=== PATIENT | female | born 1935 | race Caucasian/White ===

== ENCOUNTER 2018-07-08 02:43 | Emergency (ER) | payer MEDICARE, MEDICAID ==
--- NOTE | 2018-07-08 02:51 | EDM.PDOC ---
ED HPI GENERAL MEDICAL PROBLEM - General Stated Complaint: AMBULANCE Time Seen by Provider: 07/08/18 02:46 Source of Information: Reports: Patient History Limitations: Reports: No Limitations - History of Present Illness INITIAL COMMENTS - FREE TEXT/NARRATIVE: 4 days h/o CP weakness feels like passing out & some dizziness, tonight got very weak and slid down in bathroom, denies head/neck pain, only pain across chest. EMS found pt alert lying on bathroom floor c/o CP only. daughter states pt never told her she has been having CP till tonight. was told it was indigestion and also been constipated and felt better after BM tonight. Mid-Sternal Chest Pain Score (Numeric/FACES): 5 - Related Data Allergies Allergy/AdvReac Type Severity Reaction Status Date / Time No Known Allergies Allergy Verified 07/08/18 02:52 Home Meds: Home Meds Aspirin [Ecotrin] 81 mg PO DAILY 07/08/18 [History] Cholecalciferol (Vitamin D3) [Vitamin D3] 5,000 units PO DAILY 07/08/18 [History ] Cyanocobalamin (Vitamin B12) [Vitamin B12] 1,000 mcg PO DAILY 07/08/18 [History] Docusate Sodium [Dulcolax Stool Softener] 100 mg PO DAILY PRN 07/08/18 [History] FLUoxetine HCl [Prozac] 20 mg PO DAILY 07/08/18 [History] Indomethacin [Indocin] 50 mg PO BID 07/08/18 [History] Simvastatin [Zocor] 40 mg PO BEDTIME 07/08/18 [History] ED ROS GENERAL - Review of Systems Review Of Systems: ROS reveals no pertinent complaints other than HPI. ED EXAM, GENERAL - Physical Exam Exam: See Below Exam Limited By: No Limitations General Appearance: Alert, WD/WN, Mild Distress, Other (chest pain) Eye Exam: Bilateral Eye: PERRL (pupils ER @ 4mm) Ears: Hearing Grossly Normal Throat/Mouth: Normal Voice, No Airway Compromise Head: Atraumatic Neck: Non-Tender, Full Range of Motion Respiratory/Chest: No Respiratory Distress Cardiovascular: Regular Rate, Rhythm GI/Abdominal: Soft, Non-Tender Neurological: Alert, Oriented, Normal Cognition, No Motor/Sensory Deficits Psychiatric: Flat Affect Skin Exam: Warm, Dry, Normal Color Lymphatic: No Adenopathy Course - Vital Signs Last Recorded V/S: Last Vital Signs Temp 34.9 C L 07/08/18 02:56 Pulse 70 07/08/18 02:56 Resp 21 H 07/08/18 02:56 BP 83/43 L 07/08/18 02:56 Pulse Ox 98 07/08/18 02:56 - Orders/Labs/Meds Orders: Active Orders 24 hr Category Date Time Status EKG Documentation Completion [RC] STAT Care 07/08/18 02:45 Active CULTURE BLOOD [BC] Stat Lab 07/08/18 04:24 Ordered cefTRIAXone [Rocephin] 1 gm Med 07/08/18 04:25 Stop Req Sodium Chloride 0.9% [Normal Saline] 50 ml IV ONETIME Medication Orders Ceftriaxone Sodium 1 gm/ (Sodium Chloride) 50 mls @ 50 mls/hr IV ONETIME ONE Stop: 07/08/18 05:24 Labs: Laboratory Tests 07/08/18 07/08/18 07/08/18 Range/Units 02:50 02:50 02:50 WBC 17.5 H (5.0-10.0) 10^3/uL RBC 4.27 (4.2-5.4) 10^6/uL Hgb 12.6 (12.0-16.0) g/dL Hct 38.6 (37.0-47.0) % MCV 90.4 (80-100) fL MCH 29.5 (27.0-34.0) pg MCHC 32.6 L (33.0-35.0) g/dL Plt Count 307 (150-450) 10^3/uL Neut % (Auto) 68.2 (42.2-75.2) % Lymph % (Auto) 25.0 (20.5-50.1) % [place] % (Auto) 6.0 (2-8) % Eos % (Auto) 0.7 L (1.0-3.0) % Baso % (Auto) 0.1 (0.0-1.0) % PT 9.4 (9.0-12.0) SEC INR 0.9 (0.9-1.2) APTT 29.2 (22.0-34.0) SEC Sodium 136 (135-145) mmol/L Potassium 3.9 (3.6-5.0) mmol/L Chloride 103 (101-111) mmol/L Carbon Dioxide 21.0 (21.0-31.0) mmol/L Anion Gap 15.9 BUN 29 H (7-18) mg/dL Creatinine 1.2 (0.6-1.3) mg/dL Est Cr Clr Drug Dosing 28.09 mL/min Estimated GFR (MDRD) 43 BUN/Creatinine Ratio 24.16 Glucose 152 H (74-105) mg/dL Lactic Acid (0.5-2.2) mmol/L Calcium 8.9 (8.4-10.2) mg/dl Total Bilirubin 0.7 (0.2-1.0) mg/dL AST 22 (10-42) IU/L ALT 15 (10-60) IU/L Alkaline Phosphatase 57 (42-121) IU/L Troponin I 0.16 H* (0.00-0.02) ng/ml Total Protein 7.1 (6.7-8.2) g/dl Albumin 3.4 (3.2-5.5) g/dl Globulin 3.7 Albumin/Globulin Ratio 0.92 // Range/Units 02:50 WBC (5.0-10.0) 10^3/uL RBC (4.2-5.4) 10^6/uL Hgb (12.0-16.0) g/dL Hct (37.0-47.0) % MCV (80-100) fL MCH (27.0-34.0) pg MCHC (33.0-35.0) g/dL Plt Count (150-450) 10^3/uL Neut % (Auto) (42.2-75.2) % Lymph % (Auto) (20.5-50.1) % [place] % (Auto) (2-8) % Eos % (Auto) (1.0-3.0) % Baso % (Auto) (0.0-1.0) % PT (9.0-12.0) SEC INR (0.9-1.2) APTT (22.0-34.0) SEC Sodium (135-145) mmol/L Potassium (3.6-5.0) mmol/L Chloride (101-111) mmol/L Carbon Dioxide (21.0-31.0) mmol/L Anion Gap BUN (7-18) mg/dL Creatinine (0.6-1.3) mg/dL Est Cr Clr Drug Dosing mL/min Estimated GFR (MDRD) BUN/Creatinine Ratio Glucose (74-105) mg/dL Lactic Acid 1.1 (0.5-2.2) mmol/L Calcium (8.4-10.2) mg/dl Total Bilirubin (0.2-1.0) mg/dL AST (10-42) IU/L ALT (10-60) IU/L Alkaline Phosphatase (42-121) IU/L Troponin I (0.00-0.02) ng/ml Total Protein (6.7-8.2) g/dl Albumin (3.2-5.5) g/dl Globulin Albumin/Globulin Ratio Meds: Medications Generic Name Dose Route Start Last Admin Trade Name Freq PRN Reason Stop Dose Admin Ceftriaxone Sodium 1 gm/ 50 mls @ 50 mls/hr 07/08/18 04:25 Sodium Chloride IV 07/08/18 05:24 ONETIME ONE Discontinued Medications Generic Name Dose Route Start Last Admin Trade Name Freq PRN Reason Stop Dose Admin Sodium Chloride 1,000 mls @ 999 mls/hr 07/08/18 02:56 07/08/18 03:03 Normal Saline IV 07/08/18 03:56 999 mls/hr .BOLUS ONE Administration Morphine Sulfate 2 mg 07/08/18 03:06 07/08/18 03:11 Morphine IVPUSH 07/08/18 03:07 2 mg ONETIME ONE Administration Morphine Sulfate 2 mg 07/08/18 03:52 07/08/18 04:00 Morphine IVPUSH 07/08/18 03:53 2 mg ONETIME ONE Administration Ondansetron HCl 4 mg 07/08/18 02:56 07/08/18 03:02 Zofran IV 07/08/18 02:57 4 mg ONETIME ONE Administration - Re-Assessments/Exams Free Text/Narrative Re-Assessment/Exam: 07/08/18 04:27 GF on critical care diversion. Ravindra Wilkerson kindly accepted pt. Departure - Departure Time of Disposition: 04:28 Disposition: DC/Tfer to Acute Hospital 02 Reason for Transfer *Q: Other Condition: Fair Clinical Impression: Non-STEMI (non-ST elevated myocardial infarction) Hypotension Qualifiers: Hypotension type: unspecified hypotension type Qualified Code(s): I95.9 - Hypotension, unspecified Pneumonia Qualifiers: Pneumonia type: due to unspecified organism Laterality: left Lung location: lower lobe of lung Qualified Code(s): J18.1 - Lobar pneumonia, unspecified organism Forms: Interfacility Transfer EMTALA - My Orders Last 24 Hours: My Active Orders 07/08/18 02:45 EKG Documentation Completion [RC] STAT 07/08/18 04:24 CULTURE BLOOD [BC] Stat 07/08/18 04:25 cefTRIAXone [Rocephin] 1 gm Sodium Chloride 0.9% [Normal Saline] 50 ml IV ONETIME - Assessment/Plan Last 24 Hours: My Active Orders 07/08/18 02:45 EKG Documentation Completion [RC] STAT 07/08/18 04:24 CULTURE BLOOD [BC] Stat 07/08/18 04:25 cefTRIAXone [Rocephin] 1 gm Sodium Chloride 0.9% [Normal Saline] 50 ml IV ONETIME
[2018-07-08] MEDS ORDERED: Sodium Chloride 0.9% 1,000 ML IV ONE (02:56)
[2018-07-08] MEDS ORDERED: Ondansetron 4 MG/2 ML SDV IV ONE (02:56)
[2018-07-08] MEDS ORDERED: Morphine 2 MG/ML Syringe IVPUSH ONE ×2 (03:06→03:52)
[2018-07-08 03:12] LABS: ANION GAP 15.9
[2018-07-08] MEDS ORDERED: cefTRIAXone 1 GM in Sodium Chloride 0.9% 50 ML IV ONE (04:25)
== END 2018-07-08 04:42 ==
LOC: DL.ED 02:43
DX: I21.4 Non-ST elevation (NSTEMI) myocardial infarction (principal); I95.9 Hypotension, unspecified; J18.1 Lobar pneumonia, unspecified organism; Z79.82 Long term (current) use of aspirin
CPT/HCPCS: 36415; 70450; 71045; 80053; 83605; 84484; 85025; 85610; 85730; 87040; 93005; 96361; 96374; 96375; 96376; 99285; J2270; J2405; J7030; 99283

== ENCOUNTER → 2018-07-11 | Outpatient (CLI) | payer MEDICARE, MEDICAID ==
[2018-07-11 19:38] LABS: ANION GAP 13.7; CHLORIDE,CL 108 mmol/L (101-111); SODIUM,NA 141 mmol/L (135-145)
== END ==
LOC: DL.CLIN 14:43
PROVIDERS: ATTEND Physician Assistant Medical
DX: R06.02 Shortness of breath (principal); I25.2 Old myocardial infarction; I51.7 Cardiomegaly
CPT/HCPCS: 36415; 71046; 80053; 83880; 85025; 99214

== ENCOUNTER 2018-07-28 11:18 | Observation (INO) | payer MEDICARE, MEDICAID ==
--- NOTE | 2018-07-28 11:33 | EDM.PDOC ---
ED HPI GENERAL MEDICAL PROBLEM - General Chief Complaint: Syncope Stated Complaint: SYNCOPE Time Seen by Provider: 07/28/18 11:33 Source of Information: Reports: Patient, Family, Old Records, RN, RN Notes Reviewed History Limitations: Reports: No Limitations - History of Present Illness INITIAL COMMENTS - FREE TEXT/NARRATIVE: Pt brought to ER from [facility] with report that she had a witnessed syncopal episode. Pt states today was at her first visit to Cardiac Rehab. 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 She denies chest pain. Admits to intermittent lightheadedness. In June 2018 she was transferred from this ER to [facility] in for a non-STEMI and had 4 cardiac stents. Onset: Today, Sudden Duration: Resolved Prior to Arrival Location: Reports: Generalized Severity: Moderate - Related Data Allergies Allergy/AdvReac Type Severity Reaction Status Date / Time No Known Allergies Allergy Verified 07/08/18 02:52 Home Meds: Home Meds Aspirin [Ecotrin] 81 mg PO DAILY 07/08/18 [History] Cholecalciferol (Vitamin D3) [Vitamin D3] 5,000 units PO DAILY 07/08/18 [History ] Cyanocobalamin (Vitamin B12) [Vitamin B12] 1,000 mcg PO DAILY 07/08/18 [History] Docusate Sodium [Dulcolax Stool Softener] 100 mg PO DAILY PRN 07/08/18 [History] FLUoxetine HCl [Prozac] 20 mg PO DAILY 07/08/18 [History] Indomethacin [Indocin] 50 mg PO BID PRN 07/08/18 [History] Simvastatin [Zocor] 40 mg PO BEDTIME 07/08/18 [History] Albuterol/Ipratropium [Combivent Respimat] 07/28/18 [History] Fluticasone/Vilanterol [Breo Ellipta 100-25 MCG Inhalation Kit] 07/28/18 [ History] Past Medical History HEENT History: Reports: Hard of Hearing Other HEENT History: Rt ear hearing aid Cardiovascular History: Reports: High Cholesterol, Hypertension, RI, PTCA, Stents Other Cardiovascular History: 07/08/2018 nstemi, Ptca with 4 stents Respiratory History: Reports: COPD Gastrointestinal History: Reports: Chronic Constipation, GERD 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 - Past Surgical History Female Surgical History: Reports: Section Musculoskeletal Surgical History: Reports: Other (See Below) Other Musculoskeletal Surgeries/Procedures:: ankle surgery Social & Family History - Family History Family Medical History: Noncontributory - Caffeine Use Caffeine Use: Reports: Coffee - Living Situation & Occupation Occupation: Retired ED ROS GENERAL - Review of Systems Review Of Systems: ROS reveals no pertinent complaints other than HPI. - Physical Exam Exam: See Below Exam Limited By: No Limitations General Appearance: Alert, WD/WN, No Apparent Distress Eye Exam: Bilateral Eye: EOMI, Normal Inspection, PERRL Ears: Normal External Exam Nose: Normal Inspection, Normal Mucosa, No Blood Throat/Mouth: Normal Lips, Normal Oropharynx, Normal Voice, No Airway Compromise , Other (Mouth is dry) Head Exam: Atraumatic, Normocephalic Neck: Normal Inspection, Supple, Non-Tender, Full Range of Motion Respiratory/Chest: No Respiratory Distress, Lungs Clear, Normal Breath Sounds, No Accessory Muscle Use, Chest Non-Tender Cardiovascular: Normal Peripheral Pulses, Regular Rate, Rhythm, No Edema, No Gallop, No JVD, No Murmur, No Rub GI/Abdominal: Normal Bowel Sounds, Soft, Non-Tender, No Organomegaly, No Distention, No Abnormal Bruit, No Mass Neuro Exam (Abbreviated): Alert, Oriented, CN II-XII Intact, Normal Cognition, No Motor/Sensory Deficits Back Exam: Normal Inspection, Full Range of Motion, NT Extremities: Normal Inspection, Normal Range of Motion, Non-Tender, No Pedal Edema, Normal Capillary Refill Psychiatric: Normal Affect, Normal Mood Skin Exam: Warm, Dry, Intact, Normal Color, No Rash EKG INTERPRETATION EKG Date: 07/28/18 Time: 11:34 Rhythm: Other (SR) Rate (Beats/Min): 60 [place]: Normal P-Wave: Present QRS: Other (inferior/anterior Q waves) ST-T: Normal QT: Normal ID/PQ Interval: 1st degree AVB Comparison: No Change Course - Vital Signs Last Recorded V/S: Last Vital Signs Temp 37.2 C 07/28/18 11:39 Pulse 60 07/28/18 11:39 Resp 18 07/28/18 11:39 BP 134/56 L 07/28/18 11:39 Pulse Ox 100 07/28/18 11:39 Orthostatic Blood Pressure [ 119/62 Standing] Orthostatic Blood Pressure [ 137/61 Sitting] Orthostatic Blood Pressure [ 153/49 Supine] Lightheaded with standing. - Orders/Labs/Meds Orders: Active Orders 24 hr Category Date Time Status Blood Glucose Check, Bedside [] ONETIME Care 07/28/18 11:34 Active EKG 12 Lead [EKG Documentation Completion] [] STAT Care 07/28/18 11:34 Active Orthostatic Vital Signs [RC] ASDIRECTED Care 07/28/18 12:01 Active Peripheral IV Care [RC] . DIRECTED Care 07/28/18 11:34 Active Sodium Chloride 0.9% [Normal Saline] 250 ml Med 07/28/18 12:30 Active IV ASDIRECTED Sodium Chloride 0.9% [Saline Flush] Med 07/28/18 11:34 Active 10 ml FLUSH ASDIRECTED PRN Peripheral IV Insertion Adult [OM.PC] Stat Oth 07/28/18 11:34 Ordered Medication Orders Sodium Chloride (Normal Saline) 250 mls @ 250 mls/hr IV ASDIRECTED JUDITH Sodium Chloride (Saline Flush) 10 ml FLUSH ASDIRECTED PRN PRN Reason: Keep Vein Open Last Admin: 07/28/18 11:35 Dose: 10 ml Labs: Laboratory Tests 07/28/18 07/28/18 07/28/18 Range/Units 11:45 11:45 12:00 WBC 10.1 H (5.0-10.0) 10^3/uL RBC 3.86 L (4.2-5.4) 10^6/uL Hgb 10.9 L (12.0-16.0) g/dL Hct 34.6 L (37.0-47.0) % MCV 89.6 (80-100) fL MCH 28.2 (27.0-34.0) pg MCHC 31.5 L (33.0-35.0) g/dL Plt Count 403 (150-450) 10^3/uL Neut % (Auto) 56.6 (42.2-75.2) % Lymph % (Auto) 34.6 (20.5-50.1) % [place] % (Auto) 6.8 (2-8) % Eos % (Auto) 1.8 (1.0-3.0) % Baso % (Auto) 0.2 (0.0-1.0) % Sodium 137 (135-145) mmol/L Potassium 5.2 H D (3.6-5.0) mmol/L Chloride 106 (101-111) mmol/L Carbon Dioxide 22.0 (21.0-31.0) mmol/L Anion Gap 14.2 BUN 34 H (7-18) mg/dL Creatinine 1.2 (0.6-1.3) mg/dL Est Cr Clr Drug Dosing TNP Estimated GFR (MDRD) 43 BUN/Creatinine Ratio 28.33 Glucose 102 (74-105) mg/dL POC Glucose (83-110) mg/dl Calcium 9.1 (8.4-10.2) mg/dl Total Bilirubin 0.4 (0.2-1.0) mg/dL AST 21 (10-42) IU/L ALT 18 (10-60) IU/L Alkaline Phosphatase 61 (42-121) IU/L Troponin I < 0.02 (0.00-0.08) ng/mL B-Natriuretic Peptide 92 (0-100) pg/ml Total Protein 7.1 (6.7-8.2) g/dl Albumin 3.3 (3.2-5.5) g/dl Globulin 3.8 Albumin/Globulin Ratio 0.87 Urine Color Yellow (YELLOW) Urine Appearance Clear (CLEAR) Urine pH 5.5 (5.0-9.0) Ur Specific [place] 1.020 (1.005-1.030) Urine Protein Trace H (NEGATIVE) Urine Glucose (UA) Negative (NEGATIVE) Urine Ketones Trace H (NEGATIVE) Urine Occult Blood Negative (NEGATIVE) Urine Nitrite Negative (NEGATIVE) Urine Bilirubin Negative (NEGATIVE) Urine Urobilinogen 0.2 (0.2-1.0) mg/dL Ur Leukocyte Esterase Negative (NEGATIVE) Urine RBC Not seen /HPF Urine WBC 0-5 (0-5/HPF) /HPF Ur Epithelial Cells Moderate H /HPF Amorphous Sediment Few (0/HPF) /HPF Urine Bacteria Few (0-FEW/HPF) /HPF Hyaline Casts Few H /LPF Urine Mucus Moderate H /LPF 07/28/18 Range/Units 12:00 WBC (5.0-10.0) 10^3/uL RBC (4.2-5.4) 10^6/uL Hgb (12.0-16.0) g/dL Hct (37.0-47.0) % MCV (80-100) fL MCH (27.0-34.0) pg MCHC (33.0-35.0) g/dL Plt Count (150-450) 10^3/uL Neut % (Auto) (42.2-75.2) % Lymph % (Auto) (20.5-50.1) % [place] % (Auto) (2-8) % Eos % (Auto) (1.0-3.0) % Baso % (Auto) (0.0-1.0) % Sodium (135-145) mmol/L Potassium (3.6-5.0) mmol/L Chloride (101-111) mmol/L Carbon Dioxide (21.0-31.0) mmol/L Anion Gap BUN (7-18) mg/dL Creatinine (0.6-1.3) mg/dL Est Cr Clr Drug Dosing Estimated GFR (MDRD) BUN/Creatinine Ratio Glucose (74-105) mg/dL POC Glucose 93 (83-110) mg/dl Calcium (8.4-10.2) mg/dl Total Bilirubin (0.2-1.0) mg/dL AST (10-42) IU/L ALT (10-60) IU/L Alkaline Phosphatase (42-121) IU/L Troponin I (0.00-0.08) ng/mL B-Natriuretic Peptide (0-100) pg/ml Total Protein (6.7-8.2) g/dl Albumin (3.2-5.5) g/dl Globulin Albumin/Globulin Ratio Urine Color (YELLOW) Urine Appearance (CLEAR) Urine pH (5.0-9.0) Ur Specific [place] (1.005-1.030) Urine Protein (NEGATIVE) Urine Glucose (UA) (NEGATIVE) Urine Ketones (NEGATIVE) Urine Occult Blood (NEGATIVE) Urine Nitrite (NEGATIVE) Urine Bilirubin (NEGATIVE) Urine Urobilinogen (0.2-1.0) mg/dL Ur Leukocyte Esterase (NEGATIVE) Urine RBC /HPF Urine WBC (0-5/HPF) /HPF Ur Epithelial Cells /HPF Amorphous Sediment (0/HPF) /HPF Urine Bacteria (0-FEW/HPF) /HPF Hyaline Casts /LPF Urine Mucus /LPF Meds: Medications Generic Name Dose Route Start Last Admin Trade Name Freq PRN Reason Stop Dose Admin Sodium Chloride 250 mls @ 250 mls/hr 07/28/18 12:30 Normal Saline IV ASDIRECTED JUDITH Sodium Chloride 10 ml 07/28/18 11:34 07/28/18 11:35 Saline Flush FLUSH 10 ml ASDIRECTED PRN Administration Keep Vein Open - Radiology Interpretation Free Text/Narrative:: [facility] [place] [facility] Final Radiology Report Call: [phone] assistance Online chat: [email or web address] Name: AUSTEN MÁRQUEZ Age: 83Years F Date: 07/28/2018 SSN: -- : [id number] Study: CT HEAD WO Requesting Physician: KULDIP CURIEL Images: 1 Addl Studies: Provided Clinical History: Contrast: Without Contrast Medium: Contrast Amount: Contrast Method: Page 1 of 2 EXAM: CT Head Without Contrast EXAM DATE/TIME: 07/28/2018 11:48 AM CLINICAL HISTORY: 83 years old, female; Syncope TECHNIQUE: Imaging protocol: Axial computed tomography images of the head/brain without contrast. Coronal and sagittal reformatted images were created and reviewed. Radiation optimization: All CT scans at this facility use at least one of these dose optimization techniques: automated exposure control; mA and/or kV adjustment per patient size (includes targeted exams where dose is matched to clinical indication); or iterative reconstruction. Other technique: STROKE PROTOCOL was implemented. COMPARISON: CT Head wo Cont 07/08/2018 3:45 AM FINDINGS: Brain: No acute brain parenchymal abnormality. No intracranial hemorrhage. No intracranial mass or edema. There is diffuse cerebral atrophy. There are white matter low attenuation changes in both cerebral hemispheres likely related to chronic small vessel disease. Ventricles: No hydrocephalus when allowing for the atrophy. Bones/joints: No calvarial fracture. Sinuses: The visualized paranasal sinuses are aerated. Mastoid air cells: The mastoid air cells are aerated. Soft tissues: Unremarkable. IMPRESSION: AUSTEN MÁRQUEZ | Final Radiology Report CONFIDENTIALITY STATEMENT This report is intended only for use by the referring physician, and only in accordance with law. If you received this in error, call [phone]. Page 2 of 2 No acute intracranial abnormality. ASSESSMENT: ASPECTS ([place] Stroke Program Early CT Score) is 10. Thank you for allowing us to participate in the care of your patient. Dictated and Authenticated by: Bhupinder Barajas MD 07/28/2018 12:00 PM Central Time ([place] & [place]) [facility] Final Radiology Report Call: [phone] assistance Online chat: [email or web address] Name: AUSTEN MÁRQUEZ Age: 83Years F Date: 07/28/2018 SSN: -- : [id number] Study: XR CHEST 1 VIEW FRONTAL Requesting Physician: KULDIP CURIEL Images: 1 Addl Studies: Provided Clinical History: Contrast: Contrast Medium: Contrast Amount: Contrast Method: CONFIDENTIALITY STATEMENT This report is intended only for use by the referring physician, and only in accordance with law. If you received this in error, call [phone]. Page 1 of 1 EXAM: XR Chest, 1 View EXAM DATE/TIME: 07/28/2018 11:52 AM CLINICAL HISTORY: 83 years old, female; Syncope TECHNIQUE: Imaging protocol: XR of the chest, 1 view. COMPARISON: CR Chest 2V 07/11/2018 2:56 PM FINDINGS: Lungs: No acute lung consolidation or pulmonary edema. Pleural space: No pleural effusion or pneumothorax. Heart/Mediastinum: The heart is enlarged. The mediastinal contours are normal. Bones/joints: There are old, healed right rib fractures. IMPRESSION: Cardiomegaly. Thank you for allowing us to participate in the care of your patient. Dictated and Authenticated by: Bhupinder Barajas MD 07/28/2018 12:01 PM Central Time ([place] & [place]) Departure - Departure Time of Disposition: 13:12 (admit to Dr. Nunes) Disposition: Refer to Observation Condition: Fair Clinical Impression: Dehydration Syncope Qualifiers: Syncope type: unspecified Qualified Code(s): R55 - Syncope and collapse - Discharge Information Forms: ED Department Discharge - My Orders Last 24 Hours: My Active Orders 07/28/18 11:34 Blood Glucose Check, Bedside [RC] ONETIME EKG 12 Lead [EKG Documentation Completion] [RC] STAT Peripheral IV Care [RC] . DIRECTED Sodium Chloride 0.9% [Saline Flush] 10 ml FLUSH ASDIRECTED PRN Peripheral IV Insertion Adult [OM.PC] Stat 07/28/18 12:01 Orthostatic Vital Signs [RC] ASDIRECTED 07/28/18 12:30 Sodium Chloride 0.9% [Normal Saline] 250 ml IV ASDIRECTED - Assessment/Plan Last 24 Hours: My Active Orders 07/28/18 11:34 Blood Glucose Check, Bedside [RC] ONETIME EKG 12 Lead [EKG Documentation Completion] [RC] STAT Peripheral IV Care [RC] . DIRECTED Sodium Chloride 0.9% [Saline Flush] 10 ml FLUSH ASDIRECTED PRN Peripheral IV Insertion Adult [OM.PC] Stat 07/28/18 12:01 Orthostatic Vital Signs [RC] ASDIRECTED 07/28/18 12:30 Sodium Chloride 0.9% [Normal Saline] 250 ml IV ASDIRECTED
[2018-07-28] MEDS ORDERED: Sodium Chloride 0.9% 10 ML Syringe FLUSH PRN (11:34)
[2018-07-28 12:12] LABS: ANION GAP 14.2; CHLORIDE,CL 106 mmol/L (101-111); SODIUM,NA 137 mmol/L (135-145)
[2018-07-28] MEDS ORDERED: Sodium Chloride 0.9% 250 ML IV SCH (12:30)
[2018-07-28] MEDS ORDERED: traMADol 50 MG Tab PO PRN (13:58)
[2018-07-28] MEDS ORDERED: Albuterol/Ipratropium 3.0-0.5 MG/3 ML Neb Soln NEB PRN (14:02)
[2018-07-28] MEDS ORDERED: Acetaminophen 325 MG Tab PO PRN (14:06)
--- NOTE | 2018-07-28 14:15 | PCM.HP ---
H&P History of Present Illness - General Date of Service: 07/28/18 Admit Problem/Dx: Admission Diagnosis/Problem Admission Diagnosis/Problem Syncope Source of Information: Patient - History of Present Illness Initial Comments - Free Text/Narative: 83-year-old lady with a history of coronary artery disease, COPD. The patient recently had a non-ST elevation make or infarction. The patient on the day of admission started cardiac rehabilitation. Prior to the rehabilitation appointment she has been feeling well. Had no chest pain, shortness of breath, fever or chills but felt somewhat weak. The patient was on the treadmill and subsequently after finishing exercise the patient had a brief syncopal episode. She felt lightheaded after the exercise but had no associated chest pain, shortness of breath. She is feeling well now. In the emergency room orthostatic Drop in blood pressure was noted from systolic 153 to 119. - Related Data Allergies/Adverse Reactions: Allergies Allergy/AdvReac Type Severity Reaction Status Date / Time No Known Allergies Allergy Verified 07/28/18 14:02 Home Medications: Home Meds Aspirin [Ecotrin] 81 mg PO DAILY 07/08/18 [History] Cholecalciferol (Vitamin D3) [Vitamin D3] 5,000 units PO DAILY 07/08/18 [History ] Cyanocobalamin (Vitamin B12) [Vitamin B12] 1,000 mcg PO DAILY 07/08/18 [History] Docusate Sodium [Dulcolax Stool Softener] 100 mg PO DAILY PRN 07/08/18 [History] FLUoxetine HCl [Prozac] 20 mg PO DAILY 07/08/18 [History] Indomethacin [Indocin] 50 mg PO BID PRN 07/08/18 [History] Simvastatin [Zocor] 40 mg PO BEDTIME 07/08/18 [History] Albuterol/Ipratropium [Combivent Respimat] 07/28/18 [History] Fluticasone/Vilanterol [Breo Ellipta 100-25 MCG Inhalation Kit] 07/28/18 [ History] Past Medical History HEENT History: Reports: Hard of Hearing Other HEENT History: Rt ear hearing aid Cardiovascular History: Reports: High Cholesterol, Hypertension, [place], PTCA, Stents Other Cardiovascular History: 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 - Past Surgical History Female Surgical History: Reports: Section Musculoskeletal Surgical History: Reports: Other (See Below) Other Musculoskeletal Surgeries/Procedures:: ankle surgery Social & Family History - Family History Family Medical History: Noncontributory - Tobacco Use Smoking Status *Q: Former Smoker Years of Tobacco use: 60 Used Tobacco, but Quit: Yes Month/Year Tobacco Last Used: 07/07 - Caffeine Use Caffeine Use: Reports: Coffee - Recreational Drug Use Recreational Drug Use: No - Living Situation & Occupation Occupation: Retired H&P Review of Systems - Review of Systems: Review Of Systems: See Below General: Denies: Fever, Chills Pulmonary: Denies: Shortness of Breath Cardiovascular: Reports: Syncope. Denies: Chest Pain, Edema Gastrointestinal: Denies: Abdominal Pain Genitourinary: Denies: Dysuria Musculoskeletal: Denies: Neck Pain Psychiatric: Denies: Confusion, Agitation Neurological: Reports: Dizziness (Lightheadedness prior to syncopal episode) Exam - Exam Exam: See Below - Vital Signs Vital Signs: Last Vital Signs Temp 37.2 C 07/28/18 11:39 Pulse 60 07/28/18 11:39 Resp 18 07/28/18 11:39 BP 134/56 L 07/28/18 11:39 Pulse Ox 100 07/28/18 11:39 Orthostatic Blood Pressure [ 119/62 Standing] Orthostatic Blood Pressure [ 137/61 Sitting] Orthostatic Blood Pressure [ 153/49 Supine] - Exam General: Alert, Oriented Neck: Supple, Trachea Midline Lungs: Clear to Auscultation, Normal Respiratory Effort Cardiovascular: Regular Rate, Regular Rhythm GI/Abdominal Exam: Normal Bowel Sounds, Soft, Non-Tender Extremities: No Pedal Edema - Patient Data Lab Results Last 24 hrs: Laboratory Results - last 24 hr 07/28/18 07/28/18 07/28/18 Range/Units 11:45 11:45 12:00 WBC 10.1 H (5.0-10.0) 10^3/uL RBC 3.86 L (4.2-5.4) 10^6/uL Hgb 10.9 L (12.0-16.0) g/dL Hct 34.6 L (37.0-47.0) % MCV 89.6 (80-100) fL MCH 28.2 (27.0-34.0) pg MCHC 31.5 L (33.0-35.0) g/dL Plt Count 403 (150-450) 10^3/uL Neut % (Auto) 56.6 (42.2-75.2) % Lymph % (Auto) 34.6 (20.5-50.1) % [place] % (Auto) 6.8 (2-8) % Eos % (Auto) 1.8 (1.0-3.0) % Baso % (Auto) 0.2 (0.0-1.0) % Sodium 137 (135-145) mmol/L Potassium 5.2 H D (3.6-5.0) mmol/L Chloride 106 (101-111) mmol/L Carbon Dioxide 22.0 (21.0-31.0) mmol/L Anion Gap 14.2 BUN 34 H (7-18) mg/dL Creatinine 1.2 (0.6-1.3) mg/dL Est Cr Clr Drug Dosing TNP Estimated GFR (MDRD) 43 BUN/Creatinine Ratio 28.33 Glucose 102 (74-105) mg/dL POC Glucose (83-110) mg/dl Calcium 9.1 (8.4-10.2) mg/dl Total Bilirubin 0.4 (0.2-1.0) mg/dL AST 21 (10-42) IU/L ALT 18 (10-60) IU/L Alkaline Phosphatase 61 (42-121) IU/L Troponin I < 0.02 (0.00-0.08) ng/mL B-Natriuretic Peptide 92 (0-100) pg/ml Total Protein 7.1 (6.7-8.2) g/dl Albumin 3.3 (3.2-5.5) g/dl Globulin 3.8 Albumin/Globulin Ratio 0.87 Urine Color Yellow (YELLOW) Urine Appearance Clear (CLEAR) Urine pH 5.5 (5.0-9.0) Ur Specific [place] 1.020 (1.005-1.030) Urine Protein Trace H (NEGATIVE) Urine Glucose (UA) Negative (NEGATIVE) Urine Ketones Trace H (NEGATIVE) Urine Occult Blood Negative (NEGATIVE) Urine Nitrite Negative (NEGATIVE) Urine Bilirubin Negative (NEGATIVE) Urine Urobilinogen 0.2 (0.2-1.0) mg/dL Ur Leukocyte Esterase Negative (NEGATIVE) Urine RBC Not seen /HPF Urine WBC 0-5 (0-5/HPF) /HPF Ur Epithelial Cells Moderate H /HPF Amorphous Sediment Few (0/HPF) /HPF Urine Bacteria Few (0-FEW/HPF) /HPF Hyaline Casts Few H /LPF Urine Mucus Moderate H /LPF 07/28/18 Range/Units 12:00 WBC (5.0-10.0) 10^3/uL RBC (4.2-5.4) 10^6/uL Hgb (12.0-16.0) g/dL Hct (37.0-47.0) % MCV (80-100) fL MCH (27.0-34.0) pg MCHC (33.0-35.0) g/dL Plt Count (150-450) 10^3/uL Neut % (Auto) (42.2-75.2) % Lymph % (Auto) (20.5-50.1) % [place] % (Auto) (2-8) % Eos % (Auto) (1.0-3.0) % Baso % (Auto) (0.0-1.0) % Sodium (135-145) mmol/L Potassium (3.6-5.0) mmol/L Chloride (101-111) mmol/L Carbon Dioxide (21.0-31.0) mmol/L Anion Gap BUN (7-18) mg/dL Creatinine (0.6-1.3) mg/dL Est Cr Clr Drug Dosing Estimated GFR (MDRD) BUN/Creatinine Ratio Glucose (74-105) mg/dL POC Glucose 93 (83-110) mg/dl Calcium (8.4-10.2) mg/dl Total Bilirubin (0.2-1.0) mg/dL AST (10-42) IU/L ALT (10-60) IU/L Alkaline Phosphatase (42-121) IU/L Troponin I (0.00-0.08) ng/mL B-Natriuretic Peptide (0-100) pg/ml Total Protein (6.7-8.2) g/dl Albumin (3.2-5.5) g/dl Globulin Albumin/Globulin Ratio Urine Color (YELLOW) Urine Appearance (CLEAR) Urine pH (5.0-9.0) Ur Specific [place] (1.005-1.030) Urine Protein (NEGATIVE) Urine Glucose (UA) (NEGATIVE) Urine Ketones (NEGATIVE) Urine Occult Blood (NEGATIVE) Urine Nitrite (NEGATIVE) Urine Bilirubin (NEGATIVE) Urine Urobilinogen (0.2-1.0) mg/dL Ur Leukocyte Esterase (NEGATIVE) Urine RBC /HPF Urine WBC (0-5/HPF) /HPF Ur Epithelial Cells /HPF Amorphous Sediment (0/HPF) /HPF Urine Bacteria (0-FEW/HPF) /HPF Hyaline Casts /LPF Urine Mucus /LPF Result Diagrams: 07/28/18 11:45 07/28/18 11:45 - Problem List (1) Syncope SNOMED Code(s): 885436126 ICD Code: R55 - SYNCOPE AND COLLAPSE Status: Acute Current Visit: No Qualifiers: Syncope type: unspecified Qualified Code(s): R55 - Syncope and collapse Problem List Initiated/Reviewed/Updated: Yes Orders Last 24hrs: Active Orders 24 hr Category Date Time Status Patient Status [ADT] Routine ADT 07/28/18 14:06 Active Antiembolic Devices [RC] PER UNIT ROUTINE Care 07/28/18 14:08 Active Orthostatic Vital Signs [RC] ASDIRECTED Care 07/28/18 12:01 Active Oxygen Therapy [RC] PRN Care 07/28/18 14:06 Active Peripheral IV Care [RC] ,21 Care 07/28/18 11:34 Active RT Aerosol Therapy [RC] ASDIRECTED Care 07/28/18 14:02 Active Telemetry Monitoring [Cardiac Monitoring] [RC] . Care 07/28/18 13:49 Active DIRECTED Up With Assistance [RC] ASDIRECTED Care 07/28/18 14:06 Active VTE/DVT Education [RC] PER UNIT ROUTINE Care 07/28/18 14:06 Active Vital Signs [RC] Q4H Care 07/28/18 14:06 Active OT Evaluation and Treatment [CONS] Routine Cons 07/28/18 13:50 Active PT Evaluation and Treatment [CONS] Routine Cons 07/28/18 13:50 Active 2 Gram Sodium Diet [DIET] Diet 07/28/18 Dinner Active BASIC METABOLIC PANEL,BMP [CHEM] AM Lab 07/29/18 05:15 Ordered CBC WITH AUTO DIFF [HEME] AM Lab 07/29/18 05:15 Ordered TROPONIN I [CHEM] AM Lab 07/29/18 05:11 Ordered TROPONIN I [CHEM] Timed Lab 07/28/18 17:00 Ordered Acetaminophen [Tylenol] Med 07/28/18 14:06 Ordered 650 mg PO Q4H PRN Albuterol/Ipratropium [DuoNeb 3.0-0.5 MG/3 ML] Med 07/28/18 14:02 Ordered 3 ml NEB Q4HRRT PRN Albuterol/Ipratropium [DuoNeb 3.0-0.5 MG/3 ML] Med 07/28/18 15:00 Ordered 3 ml NEB Q8HRRT Allopurinol [Zyloprim] Med 07/29/18 08:00 Ordered 100 mg PO WITHBREAKFAST Aspirin [Halfprin] Med 07/29/18 09:00 Ordered 81 mg PO DAILY Budesonide [Pulmicort] Med 07/28/18 18:00 Ordered 0.5 mg NEB BIDRT Carvedilol [Coreg] Med 07/28/18 18:00 Ordered 6.25 mg PO BIDMEALS FLUoxetine HCl [Prozac] Med 07/29/18 09:00 Ordered 20 mg PO DAILY Ferrous Sulfate Med 07/29/18 08:00 Ordered 325 mg PO WITHBREAKFAST Folic Acid Med 07/29/18 09:00 Ordered 1 mg PO DAILY Heparin Sodium Med 07/28/18 22:00 Ordered 5,000 units SUBCUT Q8HR Patient's Own Medication [Ptom] Med 07/28/18 21:00 Ordered See Dose Instructions PO BID Sodium Chloride 0.9% [Normal Saline] 1,000 ml Med 07/28/18 14:00 Active IV ASDIRECTED Sodium Chloride 0.9% [Normal Saline] 250 ml Med 07/28/18 12:30 Active IV ASDIRECTED Sodium Chloride 0.9% [Saline Flush] Med 07/28/18 11:34 Active 10 ml FLUSH ASDIRECTED PRN Zolpidem [Ambien] Med 07/28/18 14:06 Ordered 5 mg PO BEDTIME PRN atorvaSTATin [Lipitor] Med 07/28/18 21:00 Ordered 40 mg PO BEDTIME traMADol [Ultram] Med 07/28/18 13:58 Ordered 50 mg PO Q6H PRN Antiembolic Hose [OM.PC] Per Unit Routine Oth 07/28/18 14:07 Ordered Peripheral IV Insertion Adult [OM.PC] Stat Oth 07/28/18 11:34 Ordered Resuscitation Status Routine Resus Stat 07/28/18 14:06 Ordered Medication Orders Acetaminophen (Tylenol) 650 mg PO Q4H PRN PRN Reason: Pain (Mild 1-3)/fever Albuterol/Ipratropium (Duoneb 3.0-0.5 Mg/3 Ml) 3 ml NEB Q8HRRT [facility] Albuterol/Ipratropium (Duoneb 3.0-0.5 Mg/3 Ml) 3 ml NEB Q4HRRT PRN PRN Reason: sob Allopurinol (Zyloprim) 100 mg PO WITHBREAKFAST [facility] Aspirin (Halfprin) 81 mg PO DAILY [facility] Atorvastatin Calcium (Lipitor) 40 mg PO BEDTIME [facility] Budesonide (Pulmicort) 0.5 mg NEB BIDRT [facility] Carvedilol (Coreg) 6.25 mg PO BIDMEALS [facility] Ferrous Sulfate (Ferrous Sulfate) 325 mg PO WITHBREAKFAST [facility] Folic Acid (Folic Acid) 1 mg PO DAILY [facility] Heparin Sodium (Porcine) (Heparin Sodium) 5,000 units SUBCUT Q8HR [facility] Sodium Chloride (Normal Saline) 250 mls @ 250 mls/hr IV ASDIRECTED [facility] Last Admin: 07/28/18 13:47 Dose: 250 mls/hr Sodium Chloride (Normal Saline) 1,000 mls @ 75 mls/hr IV ASDIRECTED [facility] Non-Formulary Medication (Fluoxetine Hcl [Prozac]) 20 mg PO DAILY [facility] Patient Own Medication (Ptom) 0 each PO BID [facility] Sodium Chloride (Saline Flush) 10 ml FLUSH ASDIRECTED PRN PRN Reason: Keep Vein Open Last Admin: 07/28/18 11:35 Dose: 10 ml Tramadol HCl (Ultram) 50 mg PO Q6H PRN PRN Reason: moderate pain Zolpidem Tartrate (Ambien) 5 mg PO BEDTIME PRN PRN Reason: Sleep Assessment/Plan Comment:: Syncopal episode Following treadmill activity Well monitor on telemetry Repeat troponins Orthostatic hypotension noted, IV fluids will be given PT and OT consult and treatment Coronary artery disease Recent stenting Treat with aspirin, brillinta, Coreg, Lipitor COPD No acute exacerbation Hold Breo Use Pulmicort twice a day Use DuoNeb scheduled and as needed Mild hyperkalemia Will hydrate the patient Recheck in the morning DVT prophylaxis with subcutaneous heparin Discussed CODE STATUS. The patient wish DNR CODE STATUS.
[2018-07-28] MEDS: Sodium Chloride 0.9% 1,000 ML IV SCH ×2 (14:35→22:45)
[2018-07-28] MEDS: Albuterol/Ipratropium 3.0-0.5 MG/3 ML Neb Soln NEB SCH ×2 (15:33→22:47)
[2018-07-28] MEDS: Heparin Sodium 5,000 Units/ML Vial SUBCUT SCH ×2 (15:52→21:34)
[2018-07-28] MEDS: CARVEDILOL 6.25 MG PO SCH (17:39)
[2018-07-28] MEDS: Budesonide 0.5 MG/2 ML Neb Susp NEB SCH (17:39)
[2018-07-28] MEDS: BRILINTA 90 MG PO SCH (20:29)
[2018-07-28] MEDS ORDERED: Simvastatin 40 MG Tab PO SCH (21:00)
[2018-07-28] MEDS ORDERED: ATORVASTATIN 40 MG PO SCH (21:00)
[2018-07-28] MEDS ORDERED: Zolpidem 5 MG Tab PO PRN (21:00)
[2018-07-29] MEDS: Heparin Sodium 5,000 Units/ML Vial SUBCUT SCH (05:43)
[2018-07-29 06:46] LABS: ANION GAP 14.3
[2018-07-29] MEDS: Albuterol/Ipratropium 3.0-0.5 MG/3 ML Neb Soln NEB SCH (07:30)
[2018-07-29] MEDS: Budesonide 0.5 MG/2 ML Neb Susp NEB SCH (07:31)
[2018-07-29] MEDS ORDERED: [UNRECOGNIZED DRUG - OTHER] PO SCH (08:00)
[2018-07-29] MEDS ORDERED: Allopurinol 100 MG Tab PO SCH (08:00)
[2018-07-29] MEDS: CARVEDILOL 6.25 MG PO SCH ×2 (08:49→08:53)
[2018-07-29] MEDS: BRILINTA 90 MG PO SCH (08:54)
[2018-07-29] MEDS ORDERED: Folic Acid 1 MG Tab PO SCH (09:00)
[2018-07-29] MEDS ORDERED: Aspirin 81 MG Tab.EC PO SCH (09:00)
[2018-07-29] MEDS ORDERED: FLUOXETINE HCL 20 MG PO SCH (09:00)
--- NOTE | 2018-07-29 12:15 | PCM.DCSUM1 ---
Discharge Summary - Hospital Course Free Text/Narrative:: Syncopal episode - likely due to orthostasis with dehydration Following treadmill activity no arrythmia telemetry normal troponins Orthostatic hypotension noted, IV fluids were given no further symptoms Coronary artery disease Recent stenting Treat with aspirin, brillinta, Coreg, Lipitor COPD No acute exacerbation resume home inhalers Mild hyperkalemia resolved with hydration Diagnosis: Stroke: No - Discharge Data Discharge Date: 07/29/18 Discharge Disposition: Home, Self-Care 01 Condition: Good - Discharge Diagnosis/Problem(s) (1) Syncope SNOMED Code(s): 900762034 ICD Code: R55 - SYNCOPE AND COLLAPSE Status: Acute Current Visit: No Qualifiers: Syncope type: unspecified Qualified Code(s): R55 - Syncope and collapse - Patient Summary/Data Consults: Consultations 07/28/18 13:50 OT Evaluation and Treatment [CONS] Routine PT Evaluation and Treatment [CONS] Routine - Patient Instructions Diet: Usual Diet as Tolerated Activity: As Tolerated - Discharge Plan Home Medications: Home Meds Aspirin [Ecotrin] 81 mg PO DAILY 07/08/18 [History] Cholecalciferol (Vitamin D3) [Vitamin D3] 5,000 units PO DAILY 07/08/18 [History ] Cyanocobalamin (Vitamin B12) [Vitamin B12] 1,000 mcg PO DAILY 07/08/18 [History] Docusate Sodium [Dulcolax Stool Softener] 100 mg PO DAILY PRN 07/08/18 [History] FLUoxetine HCl [Prozac] 20 mg PO DAILY 07/08/18 [History] Albuterol/Ipratropium [Combivent Respimat] 1 puff INH QID 07/28/18 [History] Carvedilol 6.25 mg PO BID 07/28/18 [History] Ferrous Sulfate 325 mg PO BID 07/28/18 [History] Fluticasone/Vilanterol [Breo Ellipta 100-25 MCG Inhalation Kit] 1 inhalation INH DAILY 07/28/18 [History] Folic Acid 1 mg PO DAILY 07/28/18 [History] Patient's Own Medication [Ptom] 1 tab PO BEDTIME 07/28/18 [History] Thiamine [Vitamin B-1] 100 mg PO DAILY 07/28/18 [History] Ticagrelor [Brilinta] 90 mg PO BID 07/28/18 [History] atorvaSTATin [Lipitor] 40 mg PO BEDTIME 07/28/18 [History] hydrOXYzine HCl [hydrOXYzine] 25 mg PO TID PRN 07/28/18 [History] traMADol [Ultram] 100 mg PO Q8HR PRN 07/28/18 [History] Oxygen Therapy Mode: Room Air Patient Handouts: Syncope, [id number] Referrals: Mehnaz Quiñones PA-C [Ordering Only Provider] - - Discharge Summary/Plan Comment DC Time >30 min.: No - General Info Date of Service: 07/29/18 Functional Status: Reports: Pain Controlled, Tolerating Diet - Review of Systems General: Denies: Fever, Weakness Cardiovascular: Denies: Chest Pain Gastrointestinal: Denies: Abdominal Pain Genitourinary: Denies: Dysuria Musculoskeletal: Denies: Neck Pain Neurological: Denies: Confusion, Dizziness Psychiatric: Denies: Confusion, Agitation, Hallucinations - Patient Data Vitals - Most Recent: Last Vital Signs Temp 36.2 C 07/29/18 08:34 Pulse 66 07/29/18 08:53 Resp 20 07/29/18 08:34 BP 153/61 H 07/29/18 08:53 Pulse Ox 99 07/29/18 08:34 Orthostatic Blood Pressure [ 119/62 Standing] Orthostatic Blood Pressure [ 137/61 Sitting] Orthostatic Blood Pressure [ 153/49 Supine] Weight - Most Recent: 74.026 kg I&O - Last 24 hours: Intake & Output 07/28/18 07/29/18 07/29/18 22:59 06:59 14:59 Intake Total 570 2066 1200 Output Total 700 800 500 Balance -130 1266 700 Lab Results - Last 24 hrs: Laboratory Results - last 24 hr 07/28/18 07/28/18 07/28/18 Range/Units 11:45 12:00 17:00 WBC (5.0-10.0) 10^3/uL RBC (4.2-5.4) 10^6/uL Hgb (12.0-16.0) g/dL Hct (37.0-47.0) % MCV (80-100) fL MCH (27.0-34.0) pg MCHC (33.0-35.0) g/dL Plt Count (150-450) 10^3/uL Neut % (Auto) (42.2-75.2) % Lymph % (Auto) (20.5-50.1) % [place] % (Auto) (2-8) % Eos % (Auto) (1.0-3.0) % Baso % (Auto) (0.0-1.0) % Sodium 137 (135-145) mmol/L Potassium 5.2 H D (3.6-5.0) mmol/L Chloride 106 (101-111) mmol/L Carbon Dioxide 22.0 (21.0-31.0) mmol/L Anion Gap 14.2 BUN 34 H (7-18) mg/dL Creatinine 1.2 (0.6-1.3) mg/dL Est Cr Clr Drug Dosing TNP Estimated GFR (MDRD) 43 BUN/Creatinine Ratio 28.33 Glucose 102 (74-105) mg/dL Calcium 9.1 (8.4-10.2) mg/dl Total Bilirubin 0.4 (0.2-1.0) mg/dL AST 21 (10-42) IU/L ALT 18 (10-60) IU/L Alkaline Phosphatase 61 (42-121) IU/L Troponin I < 0.02 0.01 (0.00-0.08) ng/mL B-Natriuretic Peptide 92 (0-100) pg/ml Total Protein 7.1 (6.7-8.2) g/dl Albumin 3.3 (3.2-5.5) g/dl Globulin 3.8 Albumin/Globulin Ratio 0.87 Urine Color Yellow (YELLOW) Urine Appearance Clear (CLEAR) Urine pH 5.5 (5.0-9.0) Ur Specific [place] 1.020 (1.005-1.030) Urine Protein Trace H (NEGATIVE) Urine Glucose (UA) Negative (NEGATIVE) Urine Ketones Trace H (NEGATIVE) Urine Occult Blood Negative (NEGATIVE) Urine Nitrite Negative (NEGATIVE) Urine Bilirubin Negative (NEGATIVE) Urine Urobilinogen 0.2 (0.2-1.0) mg/dL Ur Leukocyte Esterase Negative (NEGATIVE) Urine RBC Not seen /HPF Urine WBC 0-5 (0-5/HPF) /HPF Ur Epithelial Cells Moderate H /HPF Amorphous Sediment Few (0/HPF) /HPF Urine Bacteria Few (0-FEW/HPF) /HPF Hyaline Casts Few H /LPF Urine Mucus Moderate H /LPF 07/29/18 07/29/18 Range/Units 05:52 05:52 WBC 9.3 (5.0-10.0) 10^3/uL RBC 3.32 L (4.2-5.4) 10^6/uL Hgb 9.5 L (12.0-16.0) g/dL Hct 30.0 L (37.0-47.0) % MCV 90.4 (80-100) fL MCH 28.6 (27.0-34.0) pg MCHC 31.7 L (33.0-35.0) g/dL Plt Count 341 (150-450) 10^3/uL Neut % (Auto) 52.7 (42.2-75.2) % Lymph % (Auto) 38.1 (20.5-50.1) % [place] % (Auto) 7.2 (2-8) % Eos % (Auto) 1.8 (1.0-3.0) % Baso % (Auto) 0.2 (0.0-1.0) % Sodium 140 (135-145) mmol/L Potassium 4.3 (3.6-5.0) mmol/L Chloride 108 (101-111) mmol/L Carbon Dioxide 22.0 (21.0-31.0) mmol/L Anion Gap 14.3 BUN 28 H (7-18) mg/dL Creatinine 1.0 (0.6-1.3) mg/dL Est Cr Clr Drug Dosing 38.36 Estimated GFR (MDRD) 53 BUN/Creatinine Ratio Glucose 92 (74-105) mg/dL Calcium 8.4 (8.4-10.2) mg/dl Total Bilirubin (0.2-1.0) mg/dL AST (10-42) IU/L ALT (10-60) IU/L Alkaline Phosphatase (42-121) IU/L Troponin I 0.02 (0.00-0.08) ng/mL B-Natriuretic Peptide (0-100) pg/ml Total Protein (6.7-8.2) g/dl Albumin (3.2-5.5) g/dl Globulin Albumin/Globulin Ratio Urine Color (YELLOW) Urine Appearance (CLEAR) Urine pH (5.0-9.0) Ur Specific [place] (1.005-1.030) Urine Protein (NEGATIVE) Urine Glucose (UA) (NEGATIVE) Urine Ketones (NEGATIVE) Urine Occult Blood (NEGATIVE) Urine Nitrite (NEGATIVE) Urine Bilirubin (NEGATIVE) Urine Urobilinogen (0.2-1.0) mg/dL Ur Leukocyte Esterase (NEGATIVE) Urine RBC /HPF Urine WBC (0-5/HPF) /HPF Ur Epithelial Cells /HPF Amorphous Sediment (0/HPF) /HPF Urine Bacteria (0-FEW/HPF) /HPF Hyaline Casts /LPF Urine Mucus /LPF Med Orders - Current: Current Medications Acetaminophen (Tylenol) 650 mg PO Q4HR PRN PRN Reason: Pain (Mild 1-3)/fever Last Admin: 07/28/18 22:47 Dose: 650 mg Albuterol/Ipratropium (Duoneb 3.0-0.5 Mg/3 Ml) 3 ml NEB Q8HRRT [facility] Last Admin: 07/29/18 07:30 Dose: 3 ml Albuterol/Ipratropium (Duoneb 3.0-0.5 Mg/3 Ml) 3 ml NEB Q4HRRT PRN PRN Reason: sob Last Admin: 07/28/18 17:39 Dose: 3 ml Allopurinol (Zyloprim) 100 mg PO WITHBREAKFAST [facility] Aspirin (Halfprin) 81 mg PO DAILY [facility] Last Admin: 07/29/18 08:49 Dose: 81 mg Budesonide (Pulmicort) 0.5 mg NEB BIDRT [facility] Last Admin: 07/29/18 07:31 Dose: 0.5 mg Carvedilol (Coreg) 6.25 mg PO BIDMEALS [facility] Last Admin: 07/29/18 08:53 Dose: 6.25 mg Heparin Sodium (Porcine) (Heparin Sodium) 5,000 units SUBCUT Q8HR [facility] Last Admin: 07/29/18 05:43 Dose: 5,000 units Sodium Chloride (Normal Saline) 250 mls @ 250 mls/hr IV ASDIRECTED [facility] Last Admin: 07/28/18 13:47 Dose: 250 mls/hr Sodium Chloride (Normal Saline) 1,000 mls @ 75 mls/hr IV ASDIRECTED [facility] Last Infusion: 07/29/18 10:30 Dose: 75 mls/hr Fluoxetine Hcl [ Prozac] 20 Mg Pt's Own Med 0 each PO DAILY [facility] Last Admin: 07/29/18 08:50 Dose: 1 each Brilinta 90mg Tab (Pt's Own Med) 0 each PO BID [facility] Last Admin: 07/29/18 08:54 Dose: 1 each Atorvastatin 40 Mg (Tab Pt's Own Med) 0 each PO BEDTIME [facility] Last Admin: 07/28/18 20:30 Dose: 1 each Iron Plus Vitamin C (Pt's Own Med) 0 each PO WITHBREAKFAST [facility] Last Admin: 07/29/18 08:51 Dose: 1 each Sodium Chloride (Saline Flush) 10 ml FLUSH ASDIRECTED PRN PRN Reason: Keep Vein Open Last Admin: 07/28/18 11:35 Dose: 10 ml Tramadol HCl (Ultram) 50 mg PO Q6HR PRN PRN Reason: moderate pain Last Admin: 07/29/18 08:55 Dose: 50 mg Zolpidem Tartrate (Ambien) 5 mg PO BEDTIME PRN PRN Reason: Sleep Last Admin: 07/28/18 23:53 Dose: 5 mg Discontinued Medications Folic Acid (Folic Acid) 1 mg PO DAILY [facility] Simvastatin (Zocor) 40 mg PO BEDTIME [facility] - Exam General: Reports: Alert, Oriented Neck: Reports: Supple Lungs: Reports: Clear to Auscultation, Normal Respiratory Effort Cardiovascular: Reports: Regular Rate, Regular Rhythm GI/Abdominal Exam: Normal Bowel Sounds, Soft, Non-Tender Skin: Reports: Warm, Dry Wound/Incisions: Reports: Other (mild tremor) Neurological: Reports: No New Focal Deficit Psy/Mental Status: Reports: Alert, Normal Affect, Normal Mood
== END 2018-07-29 13:35 | disposition home or self-care (01) ==
LOC: DL.ED 11:18 → UNDOADMOB 13:27 → DL.MS 13:27
PROVIDERS: ADMIT Internal Medicine; ATTEND Internal Medicine
DX: I95.1 Orthostatic hypotension (principal); E87.5 Hyperkalemia; I25.10 Atherosclerotic heart disease of native coronary artery without angina pectoris; J44.9 Chronic obstructive pulmonary disease, unspecified; I10 Essential (primary) hypertension; Z87.891 Personal history of nicotine dependence; Z79.82 Long term (current) use of aspirin; Z79.891 Long term (current) use of opiate analgesic; Z79.51 Long term (current) use of inhaled steroids; Z79.899 Other long term (current) drug therapy
CPT/HCPCS: 36415; 70450; 71045; 80048; 80053; 81001; 82962; 83880; 84484; 85025; 93005; 94640; 96360; 96361; 96372; 97165; 99285; A9270; G0378; J1644; J7030; J7050; J7620-GY